=== PATIENT | female | born 1960 | race African-American/Black ===

== ENCOUNTER 2017-11-19 13:54 | Emergency (ER) | payer MEDICAID, OTHER ==
[~2017-11-19] VITALS: Ht 167.6 cm; Wt 113.4 kg
[2017-11-19 14:58] LABS: Basophils # (auto) 0.1 uL; Eosinophils # (auto) 0.1 uL; Eosinophils % (auto) 1.4 % (0.0-7.0); Hematocrit 38.5 % (36.0-46.0); Hemoglobin 12.7 g/dL (12.2-16.2); Lymphocytes # (auto) 2.2 uL; Lymphocytes % (auto) 26.9 % (10.0-50.0); Mean Corpuscular Hemoglobin 27.7 pg (28.0-32.0); Mean Corpuscular Hgb Conc. 32.9 g/dL (32.0-36.0); Monocytes # (auto) 0.7 uL; Monocytes % (auto) 8.5 % (0.0-12.0); Neutrophils # (auto) 5.1 uL; Neutrophils % (auto) 62.2 % (37.0-80.0); Nucleated Red Blood Cells % 0.2 %; Platelet Count (auto) 281 10^3/uL (140-450); Red Blood Cells 4.58 10^6/uL (4.0-5.20); Red Cell Distribution Width 14.7 % (11.8-14.3); White Blood Cell 8.2 10^3/uL (4.4-10.8)
[2017-11-19 16:18] LABS: Urine Bacteria NONE SEEN /hpf (None Seen); Urine Blood Negative /uL (Negative); Urine Specific Gravity 1.006 (1.001-1.035); Urine WBC 2 /hpf (0 - 5)
[2017-11-19 16:32] VITALS: BP 148/93
[2017-11-19 17:26] LABS: Alanine Aminotransferase 23 U/L (13-56); Alkaline Phosphatase 81 U/L (45-117); Anion Gap 10 (5-15); Aspartate Aminotransferase 12 U/L (15-37); BUN/Creatinine Ratio 13.4; Bilirubin, Total 0.2 mg/dL (0.2-1.0); Blood Urea Nitrogen 11 mg/dL (7-18); Calcium 9.7 mg/dL (8.5-10.1); Carbon Dioxide 25 mmol/L (21-32); Chloride 105 mmol/L (98-107); GFR African American 92 mL/min; GFR Non-African American 76 mL/min; Glucose 100 mg/dL (74-106); Potassium 3.8 mmol/L (3.5-5.1); Sodium 140 mmol/L (136-145)
[2017-11-19 17:27] LABS: Albumin 3.5 g/dL (3.4-5.0); Lipase 90 U/L (73-393)
== END 2017-11-19 18:19 | disposition home or self-care (01) ==
LOC: ER 13:54
DX: N39.0 Urinary tract infection, site not specified (principal); R07.89 Other chest pain; I10 Essential (primary) hypertension; G43.909 Migraine, unspecified, not intractable, without status migrainosus
CPT/HCPCS: 36415; 71045; 80053; 81001; 83690; 84484; 85025; 93005

== ENCOUNTER 2019-05-29 10:36 | Emergency (ER) | payer OTHER ==
[~2019-05-29] VITALS: Ht 167.6 cm; Wt 113.4 kg
[2019-05-29 10:46] VITALS: BP 176/96
[2019-05-29] MEDS ORDERED: KETOROLAC TROMETH 60MG/2ML VIAL IM ONE (12:30)
== END 2019-05-29 13:09 | disposition home or self-care (01) ==
LOC: ER 10:40
DX: S52.501A Unspecified fracture of the lower end of right radius, initial encounter for closed fracture (principal); S52.601A Unspecified fracture of lower end of right ulna, initial encounter for closed fracture; I10 Essential (primary) hypertension; Z87.891 Personal history of nicotine dependence; W01.0XXA Fall on same level from slipping, tripping and stumbling without subsequent striking against object, initial encounter; Y93.01 Activity, walking, marching and hiking; Y92.89 Other specified places as the place of occurrence of the external cause; Y99.8 Other external cause status
CPT/HCPCS: 29125; 73110; 96372; 99283; J1885

== ENCOUNTER 2023-10-28 10:15 | Emergency (ER) | payer OTHER ==
[~2023-10-28] VITALS: Ht 167.6 cm; Wt 112.7 kg
[2023-10-28 11:24] LABS: Basophils # (auto) 0.1 10 ^3/uL (0-0.2); Eosinophils # (auto) 0.1 10 ^3/uL (0-0.8); Eosinophils % (auto) 1.5 % (0.0-7.0); Hematocrit 39.1 % (36.0-46.0); Hemoglobin 13.1 g/dL (12.2-16.2); Lymphocytes # (auto) 2.1 10 ^3/uL (0.4-5.4); Lymphocytes % (auto) 33.1 % (10.0-50.0); Mean Corpuscular Hemoglobin 28.2 pg (28.0-32.0); Mean Corpuscular Hgb Conc. 33.4 g/dL (32.0-36.0); Mean Corpuscular Volume 84.4 fL (80.0-100.0); Monocytes # (auto) 0.6 10 ^3/uL (0-1.3); Monocytes % (auto) 9.5 % (0.0-12.0); Neutrophils # (auto) 3.4 10 ^3/uL (1.6-8.6); Neutrophils % (auto) 54.9 % (37.0-80.0); Red Blood Cells 4.63 10^6/uL (4.0-5.20); Red Cell Distribution Width 14.5 % (11.8-14.3); White Blood Cell 6.3 10^3/uL (4.4-10.8)
[2023-10-28] MEDS: MECLIZINE HCL 25 MG TAB PO ONE (11:29)
[2023-10-28 11:31] VITALS: PULSE 58; RESP 16; O2SAT 97
[2023-10-28 11:47] LABS: Alanine Aminotransferase 16 U/L (7-40); Albumin 4.3 g/dL (3.2-4.8); Alkaline Phosphatase 87 U/L (46-116); Anion Gap 3 (5-15); Aspartate Aminotransferase 14 U/L (13-40); Bilirubin, Total 0.4 mg/dL (0.2-1.0); Blood Urea Nitrogen 9 mg/dL (9-23); Calcium 10.2 mg/dL (8.5-10.1); Carbon Dioxide 30 mmol/L (20-30); Chloride 105 mmol/L (98-107); Glucose 99 mg/dL (74-106); Magnesium 2.3 mg/dL (1.6-2.6); Potassium 4.2 mmol/L (3.5-5.1); Sodium 138 mmol/L (136-145); Total Protein 7.8 g/dL (5.7-8.2)
[2023-10-28] MEDS ORDERED: MECL25CH38 PO (13:50)
[2023-10-28] MEDS ORDERED: ZOFR4T PO (13:50)
[2023-10-28 14:17] VITALS: BP 123/77; PULSE 55; RESP 16; TEMP 97.9; O2SAT 95
== END 2023-10-28 14:37 | disposition home or self-care (01) ==
LOC: ER 10:15
DX: H81.23 Vestibular neuronitis, bilateral (principal); I10 Essential (primary) hypertension; Z87.891 Personal history of nicotine dependence
CPT/HCPCS: 36415; 70450; 71045; 80053; 83735; 83880; 84484; 85025; 93005; 99285; J8597